=== PATIENT | male | born 1955 | race Hispanic/Latino ===

== ENCOUNTER → 2019-05-11 | Outpatient (CLI) | payer OTHER ==
[~2019-05-11] MED LIST: DIATRIZOATE MEGL/DIATRIZOA SOD 30 ML BTL PO ONE; IOPAMIDOL 370 MG/ML 200 ML INFUS..BTL INJ ONE; SODIUM CHLORIDE 0.9% 50ML 50 ML ONE
[2019-05-11 16:34] LABS: BASOPHILS % 0.5 % (0.0-1.0); EOSINOPHILS % 0.4 % (0.0-6.0); HEMATOCRIT 41.5 % (38.2-49.6); HEMOGLOBIN 14.5 g/dL (14.0-18.0); LYMPHOCYTES # (AUTO) 1.5 (1.0-3.2); LYMPHOCYTES % 17.9 % (18.0-39.1); MEAN CORPUSCULAR HEMOGLOBIN 30.3 pg (28-32); MEAN CORPUSCULAR HGB CONC 34.9 g/dL (31-35); MEAN CORPUSCULAR VOLUME 86.6 fL (81-99); MONOCYTES # (AUTO) 0.6 (0.2-0.8); MONOCYTES % 7.5 % (4.4-11.3); PLATELET COUNT 316 x10e3/uL (140-360); RED BLOOD COUNT 4.79 x10e6/uL (4.3-5.7); RED CELL DISTRIBUTION WIDTH 13.4 % (11.7-14.4)
[2019-05-11 17:00] LABS: ALANINE AMINOTRANSFERASE 14 IU/L (0-55); ALBUMIN 4.2 g/dL (3.5-5.0); ALBUMIN/GLOBULIN RATIO 1.2 (0.8-2.0); ALKALINE PHOSPHATASE 56 IU/L (40-150); ANION GAP 16.7 mmol/L (8-16); BLOOD UREA NITROGEN 13 mg/dL (7-26); BUN/CREATININE RATIO 14 (6-25); CALCIUM 9.6 mg/dL (8.4-10.2); CARBON DIOXIDE 21 mmol/L (22-29); CHLORIDE 104 mmol/L (98-107); CREATININE, SERUM 0.95 mg/dL (0.72-1.25); EST GLOMERULAR FILTRATION RATE > 60 ML/MIN (60-); GLUCOSE 93 mg/dL (74-118); POTASSIUM 3.7 mmol/L (3.5-5.1); SODIUM 138 mmol/L (136-145)
--- NOTE | 2019-05-11 17:11 | Diagnostic Imaging Report ---
EXAM: CHEST 2 VIEWS, PA and lateral DATE: 05/11/2019 Time stamp on exam: 4:36 PM INDICATION: Left flank pain COMPARISON: None FINDINGS: LINES/TUBES: Clips in the right upper quadrant of the abdomen. LUNGS: No consolidations or edema. PLEURA: No effusions or pneumothorax. HEART AND MEDIASTINUM: Normal size and contour. BONES AND SOFT TISSUES: No acute findings. IMPRESSION: No acute thoracic abnormality. Signed by: Dr. Adonay Godinez DO on 05/11/2019 5:08 PM
--- NOTE | 2019-05-11 17:41 | Diagnostic Imaging Report ---
EXAM: CT Abdomen and Pelvis WITH contrast May 11, 2019 INDICATION: Left abdominal pain. Prior abdominal surgery. Cholecystectomy. Appendectomy. Fundoplication. COMPARISON: December 19, 2009 TECHNIQUE: Abdomen and pelvis were scanned utilizing a multidetector helical scanner from the lung base to the pubic symphysis after administration of IV contrast. Coronal and sagittal reformations were obtained. Routine protocol was performed. Scan was performed when during portal venous phase. IV CONTRAST: 100 mL of Isovue-370 ORAL CONTRAST: Water RADIATION DOSE: Total DLP: 382.89 mGy*cm Estimated effective dose: (DLP x 0.015 x size factor) mSv Dose modulation, irritative reconstruction and weight base adjustment of the MA/KV was utilized to reduce the patient dosed as low as reasonably achievable COMPLICATIONS: None FINDINGS: LINES and TUBES: None. LOWER THORAX: Unremarkable HEPATOBILIARY: Too small to characterize hypodensity in the anterior right hepatic lobe likely due to a small cyst No biliary ductal dilation. GALLBLADDER: Cholecystectomy SPLEEN: No splenomegaly. PANCREAS: No focal masses or ductal dilatation. ADRENALS: No adrenal nodules KIDNEYS/URETERS: Kidneys enhance symmetrically. No hydronephrosis. No cystic or solid mass lesions. No stones. GI TRACT: No abnormal distention, wall thickening, or evidence of bowel obstruction. Moderate size hiatal hernia. Scattered diverticulosis without evidence of diverticulitis. PELVIC ORGANS/BLADDER: Unremarkable. LYMPH NODES: No lymphadenopathy. VESSELS: Scattered vascular calcification. PERITONEUM / RETROPERITONEUM: No free air or fluid. 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 SOFT TISSUES: Unremarkable. IMPRESSION: 1. Moderate size hiatal hernia. 2. Scattered diverticulosis without evidence of diverticulitis. Signed by: Dr. Sushil Moss M.D. on 05/11/2019 5:38 PM
== END ==
LOC: CT 15:49
PROVIDERS: ATTEND Surgery
DX: R10.9 Unspecified abdominal pain (principal); K57.90 Diverticulosis of intestine, part unspecified, without perforation or abscess without bleeding; K44.9 Diaphragmatic hernia without obstruction or gangrene
CPT/HCPCS: 36415; 71046; 74177; 80053; 84152; 85025; 93005; Q9967

== ENCOUNTER → 2020-07-26 | Outpatient (CLI) | payer OTHER ==
[2020-07-26 10:35] LABS: BLOOD UREA NITROGEN 10 mg/dL (7-26); BUN/CREATININE RATIO 10 (6-25); CREATININE, SERUM 0.97 mg/dL (0.72-1.25); EST GLOMERULAR FILTRATION RATE > 60 ML/MIN (60-)
--- NOTE | 2020-07-26 13:05 | Diagnostic Imaging Report ---
CT of the abdomen and pelvis, with contrast. History: Left upper quadrant abdominal pain. Comparison: CT abdomen/pelvis with contrast from 05/11/2019. Technique: Multidetector CT scanning of the abdomen and pelvis was performed from the level of the lung bases to the inferior pubic rami after intravenous and oral administration of contrast. Coronal and sagittal multiplanar reformations were obtained. RADIATION DOSE: Total DLP: 374.20 mGy*cm Dose modulation, iterative reconstruction, and/or weight based adjustment of the mA/kV was utilized to reduce the radiation dose to as low as reasonably achievable. FINDINGS: The visualized intrathoracic contents demonstrate no significant abnormalities. The liver is normal in size and attenuation. There is a stable subcentimeter hypodensity identified in segment IV which is too small to definitively characterize but favored to represent a small cyst. No new focal hepatic abnormality is identified. The gallbladder is surgically absent. There is no biliary ductal dilatation. There is a stable moderate-sized hiatal hernia present. The spleen, pancreas, and bilateral adrenal glands are unremarkable. The kidneys are normal in size and location and symmetrically. There is no evidence for nephrolithiasis or hydronephrosis. No ureteral stone or dilatation is appreciated. The urinary bladder is not distended for evaluation. The prostate is grossly unremarkable. The abdominal aorta is normal in course and caliber with Astra calcifications as well as coarse and branch vessels. The IVC is unremarkable. The visualized loops of small and large bowel demonstrate no evidence of obstruction or inflammation. The appendix is not visualized and may be surgically absent. Extensive diverticula are noted within the sigmoid and descending colon without significant adjacent inflammatory change to suggest acute diverticulitis. There is no ascites or intraperineal free air. No abnormally enlarged lymph nodes are identified within the abdomen or pelvis. There are stable degenerative changes of the thoracolumbar spine with bilateral pars interarticularis defects at L5 with associated mild anterolisthesis of L5 on S1. There is no evidence for acute fracture or destructive process. The extraperitoneal soft tissues are unremarkable. IMPRESSION: No acute abdominopelvic process or significant interval change identified from 05/11/2019. Stable moderate size hiatal hernia. Diverticulosis coli without evidence for acute diverticulitis. Signed by: Dr. Bashir Goel MD on 07/26/2020 1:01 PM
== END ==
LOC: CT 09:43
PROVIDERS: ATTEND Surgery
DX: R10.12 Left upper quadrant pain (principal)
CPT/HCPCS: 36415; 74177; 82565; 84520; Q9967